=== PATIENT | female | born 1975 | race African-American/Black ===

== ENCOUNTER 2017-03-13 11:12 | Emergency (ER) | payer OTHER ==
[~2017-03-13] VITALS: Ht 157.5 cm; Wt 100.0 kg
[~2017-03-13 11:12] MED LIST: ALBUTEROL2.5 MG/3 M IN; AMOXIL500 MG OR; ATIVAN0.5 MG OR; ATIVAN0.5 MG PO; AVIDOXY100 MG PO; BACTRIM DS1 TAB PO; BUSPAR10 M1 PO; BUSPAR5 MG PO; CELEXA20 MG OR; CIPROFLOXACIN500 M1 OR; CODEINE OR; COLACE100 MG PO; DEP0PROVERA; DEPO-MEDROL80 MG/ML IM; FIORICET PO; FLAGYL500 MG PO; FLONASE0.05 %; FLUOXETINE10 M2 PO; FLUZONE SPLT1 M1 IM; FUROSEMIDE20 MG PO; GABAPENTIN300 MG PO; GEODON80 MG OR; GEODON80 MG PO; HYCODAN1 ML OR; KEFLEX500 MG PO; KLONOPIN0.5 MG OR; KLOR-CON 1010 MEQ PO; LABETALOL100 MG PO; LABETALOL200 MG PO; LAMICTAL100 M1 OR; LASIX 20 MG TAB20 MG PO; LASIX 20 MG20 MG/TAB PO; LASIX 40 MG40 MG/TAB PO; LISINOPRIL10 MG OR; LISINOPRIL10 MG PO; LISINOPRIL5 MG PO; LORAZEPAM0.5 MG OR; LORTAB 5 OR; LORTAB 7.57.5 MG PO; LOTREL 2.5/101 CAP PO; MOTRIN800 MG/TAB PO; MULTI VIT PO; NO; ONDANSETRON ODT8 MG PO; PRENATA3 OR; PRINIVIL5 MG PO; SEASONALE OR; SERTRALINE100 MG OR; TESSALON PER100 MG OR; TRAMADOL HCL50 MG PO; TRAZODONE100 MG OR; ULTRAM50 M1 PO; VISTARIL 50MG C50 M1 OR; VISTARIL25 MG PO; WELLBUTRIN SR150 MG OR; WELLBUTRIN100 M1 PO; ZANAFLEX4 MG PO; ZOFRAN ODT4 MG PO; ZOLOFT100 MG OR; ZOLOFT50 MG PO; [UNRECOGNIZED DRUG - OTHER] OR; [UNRECOGNIZED DRUG - REMARK] OR
[2017-03-13] MEDS ORDERED: LAMICTAL25 M2 PO (11:51)
[2017-03-13] MEDS ORDERED: CYMBALTA60 MG PO (11:52)
[2017-03-13 12:17] LABS: HEMATOCRIT 42.4 % (37.0-47.0); HEMOGLOBIN 14.3 g/dl (12.0-16.0); IMMATURE GRANULOCYTES 0.3 % (0.0-1.0); MEAN CELL VOLUME 79.3 fL CALC (80.0-100.0); MEAN CORPUSCULAR HGB 26.7 pG CALC (26.0-32.0); MEAN CORPUSCULAR HGB CONC 33.7 g/L CALC (32.0-36.0); NEUT# 4.34 thou/uL (2.00-7.15); RED BLOOD COUNT 5.35 mill/uL (4.20-5.60); RED CELL DISTRI WIDTH 14.5 % (11.5-15.5)
[2017-03-13 12:31] LABS: ALBUMIN 4.4 g/dL (3.2-5.0); ALKALINE PHOSPHATASE 76 u/l (38-126); AMYLASE 42 u/l (30-110); BILIRUBIN, TOTAL 0.8 mg/dL (0.0-1.4); BUN 14 mg/dL (7-17); BUN/CREATININE RATIO 18 (12-20 (CALC)); CALCIUM 9.3 mg/dL (8.4-10.2); CARBON DIOXIDE 25 mmol/l (22-30); CHLORIDE 104 mmol/l (95-108); CREATININE 0.8 mg/dL (0.5-1.0); GFR > 60 ML/MIN (>=60 (CALC)); GFR FOR AFR.AMER. > 60 ML/MIN (>=60 (CALC)); GLUCOSE 95 mg/dL (65-105); LIPASE 145 u/l (23-300); SGOT/AST 27 u/l (14-36); SGPT/ALT 44 u/l (9-52); SODIUM 141 mmol/l (137-146); TOTAL PROTEIN 7.5 g/dL (6.3-8.2)
[2017-03-13 12:33] LABS: ANION GAP 16 (6-22 (CALC)); POTASSIUM 4.3 mmol/l (3.5-5.1)
[2017-03-13 12:34] LABS: D-DIMER 0.3 mg/L (0.19-0.60); PROTHROMBIN TIME 10.3 SECONDS (9.0-12.5)
[2017-03-13 12:39] LABS: MYOGLOBIN 57 ng/mL (0 - 62)
[2017-03-13 15:15] VITALS: BP 117/75
== END 2017-03-13 15:30 | disposition left against medical advice (07) | DRG 313 ==
LOC: ED 11:12
PROVIDERS: Emergency Medicine
DX: R07.9 Chest pain, unspecified (principal); I10 Essential (primary) hypertension; F43.10 Post-traumatic stress disorder, unspecified; F31.9 Bipolar disorder, unspecified; D57.3 Sickle-cell trait; Z91.19 Patient's noncompliance with other medical treatment and regimen

== ENCOUNTER 2017-03-14 02:33 | Inpatient (IN) | payer OTHER ==
[~2017-03-14] VITALS: Ht 157.5 cm; Wt 114.0 kg
[2017-03-14] VITALS (18 sets, daily range): BP systolic 75–144; BP diastolic 40–91
[~2017-03-14 02:33] MED LIST changes: +CYMBALTA60 MG PO; +LAMICTAL25 M2 PO
[2017-03-14 03:16] LABS: URINE BILIRUBIN - DIPSTICK NEGATIVE (NEGATIVE); URINE BLOOD DIPSTICK NEGATIVE (NEGATIVE); URINE CLARITY SLIGHT CLOUDY; URINE COLOR YELLOW; URINE GLUCOSE - DIPSTICK NEGATIVE (NEGATIVE); URINE KETONE NEGATIVE (NEGATIVE); URINE LEUK ESTERASE NEGATIVE (NEGATIVE); URINE NITRITE - DIPSTICK NEGATIVE (Negative); URINE PROTEIN - DIPSTICK NEGATIVE (NEG-TRACE)
[2017-03-14 03:25] LABS: ALBUMIN 3.7 g/dL (3.2-5.0); ALKALINE PHOSPHATASE 74 u/l (38-126); ANION GAP 17 (6-22 (CALC)); BILIRUBIN, TOTAL 0.4 mg/dL (0.0-1.4); BUN 15 mg/dL (7-17); BUN/CREATININE RATIO 15 (12-20 (CALC)); CALCIUM 8.6 mg/dL (8.4-10.2); CARBON DIOXIDE 20 mmol/l (22-30); CHLORIDE 106 mmol/l (95-108); GFR > 60 ML/MIN (>=60 (CALC)); GFR FOR AFR.AMER. > 60 ML/MIN (>=60 (CALC)); GLUCOSE 116 mg/dL (65-105); POTASSIUM 3.7 mmol/l (3.5-5.1); SGOT/AST 23 u/l (14-36); SGPT/ALT 36 u/l (9-52); SODIUM 140 mmol/l (137-146); TOTAL PROTEIN 6.5 g/dL (6.3-8.2)
[2017-03-14 03:30] LABS: ETHYL ALCOHOL 12 mg/dl (0-30)
[2017-03-14 03:31] LABS: BARBITURATES NEGATIVE (NEGATIVE); COCAINE NEGATIVE (NEGATIVE); METHADONE NEGATIVE (NEGATIVE); OXCYCODONE NEGATIVE (NEGATIVE); TETRAHYDROCANNABIONOL NEGATIVE (NEGATIVE); TRICYLIC ANTIDEPRESSANTS NEGATIVE (NEGATIVE)
[2017-03-14 03:32] LABS: HEMOGLOBIN 12.7 g/dl (12.0-16.0); IMMATURE GRANULOCYTES 0.2 % (0.0-1.0); MEAN CELL VOLUME 80.1 fL CALC (80.0-100.0); MEAN CORPUSCULAR HGB 27.5 pG CALC (26.0-32.0); MEAN CORPUSCULAR HGB CONC 34.3 g/L CALC (32.0-36.0); NEUT# 3.88 thou/uL (2.00-7.15); RED BLOOD COUNT 4.62 mill/uL (4.20-5.60); RED CELL DISTRI WIDTH 14.6 % (11.5-15.5)
[2017-03-15] VITALS (7 sets, daily range): BP systolic 107–140; BP diastolic 68–95
[2017-03-15 04:23] LABS: HEMATOCRIT 35.3 % (37.0-47.0); HEMOGLOBIN 11.9 g/dl (12.0-16.0); IMMATURE GRANULOCYTES 0.1 % (0.0-1.0); MEAN CELL VOLUME 81.3 fL CALC (80.0-100.0); MEAN CORPUSCULAR HGB 27.4 pG CALC (26.0-32.0); MEAN CORPUSCULAR HGB CONC 33.7 g/L CALC (32.0-36.0); NEUT# 3.84 thou/uL (2.00-7.15); RED BLOOD COUNT 4.34 mill/uL (4.20-5.60); RED CELL DISTRI WIDTH 14.7 % (11.5-15.5)
[2017-03-15 04:38] LABS: ANION GAP 11 (6-22 (CALC)); BUN 12 mg/dL (7-17); BUN/CREATININE RATIO 13 (12-20 (CALC)); CALCIUM 8.2 mg/dL (8.4-10.2); CARBON DIOXIDE 23 mmol/l (22-30); CHLORIDE 108 mmol/l (95-108); CREATININE 0.9 mg/dL (0.5-1.0); GFR > 60 ML/MIN (>=60 (CALC)); GFR FOR AFR.AMER. > 60 ML/MIN (>=60 (CALC)); GLUCOSE 104 mg/dL (65-105); SODIUM 138 mmol/l (137-146)
== END 2017-03-15 12:20 | disposition home or self-care (01) | DRG 918 ==
LOC: ED 02:33 → ED-I 05:20 → ED 05:38 → ICU 05:39
PROVIDERS: Emergency Medicine; Nurse Practitioner Family; ADMIT Internal Medicine; ATTEND Internal Medicine
DX: T43.591A Poisoning by other antipsychotics and neuroleptics, accidental (unintentional), initial encounter (principal); F31.9 Bipolar disorder, unspecified; I10 Essential (primary) hypertension; T43.211A Poisoning by selective serotonin and norepinephrine reuptake inhibitors, accidental (unintentional), initial encounter; F10.10 Alcohol abuse, uncomplicated; D57.3 Sickle-cell trait; F43.10 Post-traumatic stress disorder, unspecified; R94.31 Abnormal electrocardiogram [ECG] [EKG]; D64.9 Anemia, unspecified; R41.82 Altered mental status, unspecified

== ENCOUNTER 2017-05-21 02:30 | Emergency (ER) | payer SELFPAY ==
[~2017-05-21] VITALS: Ht 157.5 cm; Wt 101.2 kg
[2017-05-21] MEDS ORDERED: HALOPERIDOL2 MG PO (02:42)
[2017-05-21] MEDS ORDERED: LAMICTAL25 M2 PO (02:43)
[2017-05-21] MEDS ORDERED: COGENTIN PO (02:43)
[2017-05-21] MEDS ORDERED: VISTARIL25 MG PO (02:44)
[2017-05-21 03:56] LABS: HEMATOCRIT 37.3 % (37.0-47.0); HEMOGLOBIN 12.9 g/dl (12.0-16.0); IMMATURE GRANULOCYTES 0.3 % (0.0-1.0); MEAN CELL VOLUME 79.5 fL CALC (80.0-100.0); MEAN CORPUSCULAR HGB 27.5 pG CALC (26.0-32.0); MEAN CORPUSCULAR HGB CONC 34.6 g/L CALC (32.0-36.0); NEUT# 3.51 thou/uL (2.00-7.15); RED BLOOD COUNT 4.69 mill/uL (4.20-5.60); RED CELL DISTRI WIDTH 14.1 % (11.5-15.5)
[2017-05-21 04:19] LABS: ACT PARTIAL THROMBO TIME 24.2 SECONDS (20.0-32.5); INTERNATIONAL NORMALIZED RATIO 0.9 RATIO (0.7-1.3); PROTHROMBIN TIME 9.9 SECONDS (9.0-12.5)
[2017-05-21 04:22] LABS: ALBUMIN 3.5 g/dL (3.2-5.0); ALKALINE PHOSPHATASE 80 u/l (38-126); ANION GAP 13 (6-22 (CALC)); BILIRUBIN, TOTAL 0.5 mg/dL (0.0-1.4); BUN 16 mg/dL (7-17); BUN/CREATININE RATIO 18 (12-20 (CALC)); CALCIUM 8.9 mg/dL (8.4-10.2); CARBON DIOXIDE 26 mmol/l (22-30); CHLORIDE 106 mmol/l (95-108); CREATININE 0.9 mg/dL (0.5-1.0); GFR > 60 ML/MIN (>=60 (CALC)); GFR FOR AFR.AMER. > 60 ML/MIN (>=60 (CALC)); GLUCOSE 99 mg/dL (65-105); POTASSIUM 3.3 mmol/l (3.5-5.1); SGOT/AST 33 u/l (14-36); SGPT/ALT 24 u/l (9-52); SODIUM 142 mmol/l (137-146); TOTAL PROTEIN 6.5 g/dL (6.3-8.2)
[2017-05-21 04:35] LABS: MYOGLOBIN 52 ng/mL (0 - 62)
[2017-05-21 05:08] LABS: URINE BILIRUBIN - DIPSTICK NEGATIVE (NEGATIVE); URINE BLOOD DIPSTICK NEGATIVE (NEGATIVE); URINE CLARITY CLEAR; URINE COLOR YELLOW; URINE GLUCOSE - DIPSTICK NEGATIVE (NEGATIVE); URINE KETONE NEGATIVE (NEGATIVE); URINE LEUK ESTERASE NEGATIVE (NEGATIVE); URINE NITRITE - DIPSTICK NEGATIVE (Negative); URINE PROTEIN - DIPSTICK NEGATIVE (NEG-TRACE); URINE SPECIFIC GRAVITY 1.015; URINE UROBILINOGEN - DIPSTICK 0.2 E.U./dL (0.2)
[2017-05-21 05:51] VITALS: BP 118/63
== END 2017-05-21 05:20 | disposition left against medical advice (07) | DRG 313 ==
LOC: ED 02:30
PROVIDERS: Emergency Medicine
DX: R07.9 Chest pain, unspecified (principal); I10 Essential (primary) hypertension; D57.3 Sickle-cell trait; F31.9 Bipolar disorder, unspecified; F43.10 Post-traumatic stress disorder, unspecified; Z91.19 Patient's noncompliance with other medical treatment and regimen

== ENCOUNTER 2019-09-29 | Emergency (ER) | payer BC ==
[~2019-09-29] MED LIST changes: +COGENTIN PO; +HALOPERIDOL2 MG PO
[2019-09-29] MEDS ORDERED: TAM75CAP PO (01:15)
== END 2019-09-29 01:50 | disposition home or self-care (01) | DRG 195 ==
DX: J10.1 Influenza due to other identified influenza virus with other respiratory manifestations (principal); I10 Essential (primary) hypertension

== ENCOUNTER 2019-10-03 | Emergency (ER) | payer BC ==
[~2019-10-03] MED LIST changes: +TAM75CAP PO
[2019-10-03 15:51] LABS: HEMATOCRIT 39.1 % (37.0-47.0); HEMOGLOBIN 13.1 g/dl (12.0-16.0); IMMATURE GRANULOCYTES 0.2 % (0.0-5.0); MEAN CELL VOLUME 75.9 fL CALC (80.0-100.0); MEAN CORPUSCULAR HGB 25.4 pG CALC (26.0-32.0); MEAN CORPUSCULAR HGB CONC 33.5 g/dL CAL (32.0-36.0); NEUT# 3.19 thou/uL (2.00-7.15); RED BLOOD COUNT 5.15 mill/uL (4.20-5.60); RED CELL DISTRI WIDTH 14.4 % (11.5-15.5)
[2019-10-03 16:26] LABS: URINE BILIRUBIN - DIPSTICK NEGATIVE (NEGATIVE); URINE BLOOD DIPSTICK NEGATIVE (NEGATIVE); URINE COLOR YELLOW; URINE GLUCOSE - DIPSTICK NEGATIVE (NEGATIVE); URINE KETONE NEGATIVE (NEGATIVE); URINE LEUK ESTERASE NEGATIVE (NEGATIVE); URINE NITRITE - DIPSTICK NEGATIVE (Negative); URINE PH 5.5 (4.5-8.0); URINE PROTEIN - DIPSTICK NEGATIVE (NEG-TRACE); URINE UROBILINOGEN - DIPSTICK 0.2 E.U./dL (0.2)
[2019-10-03 16:29] LABS: ALBUMIN 3.8 g/dL (3.2-5.0); ALKALINE PHOSPHATASE 67 u/l (38-126); BILIRUBIN, TOTAL 0.3 mg/dL (0.0-1.4); BUN 15 mg/dL (7-17); BUN/CREATININE RATIO 22 (12-20 (CALC)); CARBON DIOXIDE 26 mmol/l (22-30); CHLORIDE 103 mmol/l (95-108); CREATININE 0.7 mg/dL (0.5-1.0); GFR > 60 ML/MIN (>=60 (CALC)); GFR FOR AFR.AMER. > 60 ML/MIN (>=60 (CALC)); SGOT/AST 42 u/l (14-36); SODIUM 135 mmol/l (137-146); TOTAL PROTEIN 7.3 g/dL (6.3-8.2)
[2019-10-03 16:31] LABS: ANION GAP 10 (6-22 (CALC)); POTASSIUM 4.3 mmol/l (3.5-5.1)
== END 2019-10-03 18:05 | disposition home or self-care (01) | DRG 866 ==
PROVIDERS: Family Medicine
DX: B34.9 Viral infection, unspecified (principal); I10 Essential (primary) hypertension; Z20.828 Contact with and (suspected) exposure to other viral communicable diseases

== ENCOUNTER 2021-07-29 01:11 | Emergency (ER) | payer SELFPAY ==
[~2021-07-29] VITALS: Ht 154.9 cm; Wt 95.0 kg
[2021-07-29] MEDS ORDERED: LISINOPRIL30 MG PO (01:39)
[2021-07-29] MEDS ORDERED: AMLODIPINE BESY10 MG PO (01:40)
[2021-07-29] MEDS ORDERED: KLONOPIN2 MG PO (01:41)
[2021-07-29 03:00] VITALS: BP 171/94
== END 2021-07-29 03:00 | disposition home or self-care (01) | DRG 195 ==
LOC: ED 01:11
DX: J10.1 Influenza due to other identified influenza virus with other respiratory manifestations (principal); I10 Essential (primary) hypertension; F31.9 Bipolar disorder, unspecified; D57.3 Sickle-cell trait; Z20.822 Contact with and (suspected) exposure to COVID-19

== ENCOUNTER 2022-01-18 22:44 | Emergency (ER) | payer SELFPAY ==
[~2022-01-18] VITALS: Ht 154.9 cm; Wt 92.0 kg
[~2022-01-18 22:44] MED LIST changes: +AMLODIPINE BESY10 MG PO; +KLONOPIN2 MG PO; +LISINOPRIL30 MG PO
[2022-01-18 23:12] VITALS: BP 170/107
[2022-01-18 23:30] VITALS: BP 169/111
[2022-01-18] MEDS ORDERED: ULTRAM50 M1 PO (23:33)
[2022-01-18 23:42] VITALS: BP 169/111
== END 2022-01-18 23:50 | disposition home or self-care (01) | DRG 301 ==
LOC: ED 22:44
DX: I83.813 Varicose veins of bilateral lower extremities with pain (principal); I10 Essential (primary) hypertension; D57.3 Sickle-cell trait; F31.9 Bipolar disorder, unspecified

== ENCOUNTER 2024-08-09 22:35 | Emergency (ER) | payer SELFPAY ==
[~2024-08-09] VITALS: Ht 154.9 cm; Wt 80.0 kg
[2024-08-09 22:35] VITALS: BP 183/123
[~2024-08-09 22:35] MED LIST changes: +HYDROCHLOROT25 MG PO
[2024-08-09] MEDS ORDERED: OLANZapine 5 MG/TAB PO ONE (23:15)
[2024-08-10] MEDS ORDERED: OLANZAPINE5 MG PO (00:23)
[2024-08-10] MEDS ORDERED: LORazepam 1 MG/TAB PO ONE (00:30)
== END 2024-08-10 01:15 | disposition home or self-care (01) | DRG 885 ==
LOC: ED 22:35
DX: F31.9 Bipolar disorder, unspecified (principal); S60.221A Contusion of right hand, initial encounter; F43.10 Post-traumatic stress disorder, unspecified; I10 Essential (primary) hypertension; D57.3 Sickle-cell trait; W22.09XA Striking against other stationary object, initial encounter; T43.96XA Underdosing of unspecified psychotropic drug, initial encounter; Z91.128 Patient's intentional underdosing of medication regimen for other reason